=== PATIENT | female | born 1985 | race Hispanic/Latino ===

== ENCOUNTER 2017-02-10 18:03 | Inpatient (IN) | payer OTHER ==
[~2017-02-10] VITALS: Ht 175.3 cm; Wt 76.0 kg
[2017-02-10 18:23] VITALS: BP 126/88
[2017-02-10] MEDS ORDERED: LR 1,000 ML IV ONE (19:45)
[2017-02-10 20:05] LABS: MEAN CORPUSCULAR HGB CONC 34.5 g/dl (32.0-36.5); MEAN CORPUSCULAR VOLUME 101.6 fl (80.0-96.0); RED CELL DISTRIBUTION WIDTH 11.7 % (11.5-14.5); WHITE BLOOD COUNT 14.8 K/mm3 (4.0-10.0)
[2017-02-10] MEDS: BETAMETHASONE SOLUSPAN 6MG/ML INJ 5ML (J0702) IM SCH (20:43)
[2017-02-10 21:18] VITALS: BP 127/74
[2017-02-11 02:11] VITALS: BP 114/66
[2017-02-11] MEDS ORDERED: PENICILLIN G POTASSIUM IV 5 MU in D5W MINI-BAG PLUS 100 ML IV STA (03:02)
[2017-02-11] MEDS ORDERED: LR 1,000 ML IV SCH ×2 (03:02→09:19)
[2017-02-11] MEDS ORDERED: LACTATED RINGER'S 1000 ML IV STA (03:02)
[2017-02-11 05:33] VITALS: BP 117/67
[2017-02-11 07:18] VITALS: BP 122/68
[2017-02-11] MEDS ORDERED: OXYTOCIN DRIP 30 UNITS in APPROPRIATE DILUENT 1 EA IV SCH (09:30)
[2017-02-11] MEDS: PENICILLIN G POTASSIUM IV 2.5 MU in D5W 100 ML IV SCH ×3 (10:24→19:20)
--- NOTE | 2017-02-11 14:05 | IPNPDOC ---
Text Note Date of Service The patient was seen on 02/11/17. NOTE SBAR from Dr Gross ~0830. Met the pt shortly thereafter, H&P reviewed. Was 1 cm at ~0730 Pit at 4 mu/min, has periods of q 1 min ctx's then will space out Now NST is Cat 2 with no decels but periods of min behzad. Behzad improved with my cx check Cx v3/90/-1 AROM of a forebag with clr fluid Doing well. Recheck in 2-4 hrs, sooner prn. Epidural OK Sessions VS,Vickie, I+O VSVickie, I+O Laboratory Tests 02/10/17 19:55 Red Blood Count 3.74 L, Mean Corpuscular Volume 101.6 H, Mean Corpuscular Hemoglobin 35.0 H, Mean Corpuscular Hemoglobin Concent 34.5, Red Cell Distribution Width 11.7 Vital Signs Date Time Temp Pulse Resp B/P (MAP) Pulse Ox O2 Delivery O2 Flow Rate FiO2 02/11/17 07:18 98.7 78 16 122/68 (86) 02/10/17 18:23 Room Air SESSIONS,PIA Rosa MD Feb 11, 2017 14:05
--- NOTE | 2017-02-11 17:22 | IPNPDOC ---
Text Note Date of Service The patient was seen on 02/11/17. NOTE For approx one hour episodic decels with mostly mod kelly but diff to tell whether early or late decels. Pit at 8 mu/min. RN has been very good at pos. change and O2, etc. IUPC placed to better delineate status. Cx 80/-1. IUPC shows reg ctx's, adeq MVU's, improved mod kelly, and some early decels. Safe to continue. Watching closely. Sessions VS,Vickie, I+O VSVickie I+O Laboratory Tests 02/10/17 19:55 Red Blood Count 3.74 L, Mean Corpuscular Volume 101.6 H, Mean Corpuscular Hemoglobin 35.0 H, Mean Corpuscular Hemoglobin Concent 34.5, Red Cell Distribution Width 11.7 Vital Signs Date Time Temp Pulse Resp B/P (MAP) Pulse Ox O2 Delivery O2 Flow Rate FiO2 02/11/17 07:18 98.7 78 16 122/68 (86) 02/10/17 18:23 Room Air SESSIONS,PIA Rosa MD Feb 11, 2017 17:22
[2017-02-11] MEDS ORDERED: FENTANYL 2MCG/ML ROPIVACAINE 0.2% IN 0.9% NACL 200ML IVBAG As Ordered ONE (18:17)
--- NOTE | 2017-02-11 18:28 | IPNPDOC ---
Text Note Date of Service The patient was seen on 02/11/17. NOTE note created in error Vickie HERNANDEZ I+O VSVickie I+O Laboratory Tests 02/10/17 19:55 Red Blood Count 3.74 L, Mean Corpuscular Volume 101.6 H, Mean Corpuscular Hemoglobin 35.0 H, Mean Corpuscular Hemoglobin Concent 34.5, Red Cell Distribution Width 11.7 Vital Signs Date Time Temp Pulse Resp B/P (MAP) Pulse Ox O2 Delivery O2 Flow Rate FiO2 02/11/17 07:18 98.7 78 16 122/68 (86) 02/10/17 18:23 Room Air SESSIONS,PIA Rosa MD Feb 11, 2017 18:26
[2017-02-11] MEDS ORDERED: ONDANSETRON 4MG/2ML VIAL (J2405) IV PRN (19:00)
[2017-02-11] MEDS ORDERED: FENTANYL/ROPIVACAINE/NACL BAG 200 ML EPIDURAL SCH (19:00)
[2017-02-11] MEDS ORDERED: ePHEDrine SULFATE 25 MG/5 ML(5MG/ML) SYRINGE IV PRN (19:00)
[2017-02-11] MEDS ORDERED: LACTATED RINGER'S 1000 ML IV PRN (19:00)
[2017-02-11] MEDS ORDERED: EPIDURAL/PCA KEYS XX PRN (19:00)
[2017-02-11] MEDS ORDERED: NALOXONE INJ 0.4 MG/1 ML VIAL (J2310) IV PRN (19:00)
[2017-02-11] MEDS ORDERED: diphenhydrAMINE INJ 50MG/ML VIAL (J1200) IV PRN (19:00)
[2017-02-11] MEDS ORDERED: REFRIGERATOR IV KEYS XX PRN (19:00)
[2017-02-11] MEDS ORDERED: EPIDURAL COMMENT XX SCH (19:00)
[2017-02-11] MEDS: BETAMETHASONE SOLUSPAN 6MG/ML INJ 5ML (J0702) IM SCH (21:23)
--- NOTE | 2017-02-11 21:27 | IPNPDOC ---
Text Note Date of Service The patient was seen on 02/11/17. NOTE NST mostly Cat 1 since epidural, some early's, a few episodic variables. Mod kelly throughout. MVU's had diminished significantly, pit restarted about 1 hr ago, now at 4 mu/ min Cx /-1 Cont pitocin to effect adequate ctx freq and MVU's Sessions VS,Vickie, I+O VS, Vickie, I+O Vital Signs Date Time Temp Pulse Resp B/P (MAP) Pulse Ox O2 Delivery O2 Flow Rate FiO2 02/11/17 07:18 98.7 78 16 122/68 (86) 02/10/17 18:23 Room Air SESSIONS,PIA Rosa MD Feb 11, 2017 21:27
[2017-02-12] MEDS ORDERED: OXYTOCIN DRIP 30 UNITS in APPROPRIATE DILUENT 1 EA IV SCH (01:03)
--- NOTE | 2017-02-12 01:03 | DNPDOC ---
[facility] Delivery Note Delivery Note DATE OF DELIVERY: [id number] at 0013 PREDELIVERY DIAGNOSIS: 36+1/7 weeks' gestation and labor. POST DELIVERY DIAGNOSIS: Delivered. PROCEDURE: Spontaneous vaginal delivery CHILD HEALTH ASSOCIATE: Dr. Stinson ANESTHESIA: Epidural ESTIMATED BLOOD LOSS: 200 mL. FINDINGS: weight pending, Score 8/9 DELIVERY SUMMARY: Called to room, surprisingly C/C/OA. Pushed very well, very tight perineum that did not respond to a gentle mod'd Ritgen attempt. ML epis cut after disc of why. Excellent descent thereafter and no delay of the vtx. Restituted to LOT, no delay of ant/post shoulders. To abd. Very small and fragile cord. Cord C/C by GM. Cord blood. Difficult to ID the vessels in the cord therefore gasses not done and placenta was also spontaneously delivering. Intact placenta with no traction. Fundus massaged and firm, pit going wide open. ML epis repaired easily with 3-0 vicryl, there was no extension. Good cosmesis/hemostasis. Sessions MD STINSON,PIA Rosa MD Feb 12, 2017 01:03
[2017-02-12] MEDS ORDERED: MEASLES,MUMPS,RUBELLA VACCINE INJ (MMR-II) (90707) SC SCH (01:15)
[2017-02-12] MEDS ORDERED: ACETAMINOPHEN TAB 650MG DOSE (2X325MG) PO PRN (01:15)
[2017-02-12] MEDS ORDERED: IBUPROFEN 800 MG TAB PO PRN (01:15)
[2017-02-12] MEDS ORDERED: DIBUCAINE 1% OINTMENT 30GM TOP PRN (01:15)
[2017-02-12] MEDS ORDERED: METOCLOPRAMIDE INJ 10MG/2ML VIAL (J2765) IV PRN (01:15)
[2017-02-12] MEDS ORDERED: RHOGAM 300 MCG (1500 IU) INJ (J2790) IM SCH (01:15)
[2017-02-12 02:41] VITALS: BP 127/77
[2017-02-12 06:05] VITALS: BP 137/87
[2017-02-12] MEDS ORDERED: PRENATAL VITAMINS CHEWABLE TABLET PO SCH (09:00)
[2017-02-12] MEDS ORDERED: DOCUSATE SODIUM 100 MG CAP PO SCH (09:00)
[2017-02-12] MEDS ORDERED: COLA100C5 PO (16:33)
[2017-02-12] MEDS ORDERED: ACET50TA PO (16:33)
[2017-02-12] MEDS ORDERED: IBUP-1114 PO (16:33)
[2017-02-12] MEDS ORDERED: PRENTAB9 PO (16:33)
[2017-02-12] MEDS ORDERED: DIBU1OIN TOP (16:33)
== END 2017-02-12 17:00 | disposition home or self-care (01) | DRG 775 ==
LOC: M LDO 18:03 → M LDI 21:55 → M OBS 02-12 02:25
PROVIDERS: ADMIT Student in an Organized Health Care Education/Training Program; ATTEND Student in an Organized Health Care Education/Training Program
PROC: 0W8NXZZ Division of Female Perineum, External Approach (ICD-10-PCS; principal; 2017-02-12)
DX: O60.14X0 Preterm labor third trimester with preterm delivery third trimester, not applicable or unspecified (principal); Z37.0 Single live birth; Z3A.36 36 weeks gestation of pregnancy